=== PATIENT | female | born 1980 | race Two or more races ===

== ENCOUNTER 2024-03-05 08:00 | Inpatient (IN) | payer OTHER ==
[~2024-03-05] VITALS: Ht 66 cm; Wt 59.9 kg
[2024-03-05 09:07] VITALS: BP 119/79
[2024-03-05 09:08] VITALS: BP 132/84
[2024-03-05 09:09] LABS: HEMATOCRIT 33.7 % (36.0-45.00); MEAN CELL VOLUME 87.8 fL (80.00-100.00); MEAN CORPUSCULAR HEMOGLOBIN 28.6 pg (27.00-32.0); MEAN CORPUSCULAR HGB CONC 32.6 g/dl (32.0-36.0); PLATELET COUNT 299 K/uL (150-450); RED BLOOD COUNT 3.84 M/uL (4.00-6.00)
[2024-03-05 09:12] LABS: RED CELL DISTRIBUTION WIDTH 17.2 % (11.5-14.5)
[2024-03-05] MEDS ORDERED: ANIMAL CHEWS1 EACH PO (09:12)
[2024-03-05 09:18] LABS: URINE APPEARANCE Clear; URINE BILIRRUBIN Negative (NEGATIVE); URINE BLOOD Negative; URINE COLOR Yellow; URINE GLUCOSE Negative (NEGATIVE); URINE KETONE Negative (NEGATIVE); URINE LEUKOCYTE Negative; URINE NITRATE Negative; URINE PROTEIN Negative (NEGATIVE); URINE UROBILINOGEN 0.2 E.U./dl
[2024-03-05 09:19] LABS: URINE BACTERIA 6.1 uL (0.0-1933); URINE EPITHELIAL CELLS 2.6 uL (0.0-38.8); URINE RBC 4.5 uL (0.0-20.8)
[2024-03-05 09:29] LABS: INR 1.01; PARTIAL THROMBOPLASTIN TIME 23.4 SECONDS (22.0-34.0)
[2024-03-05 09:50] LABS: URINE WBC 1.4 uL (0.0-23.2)
[2024-03-05 10:34] LABS: ALBUMIN 3.7 gm/dL (3.4-5.0); BILIRUBIN TOTAL 0.42 mg/dL (0.3-1.2); CREATININE SERUM 0.85 mg/dL (0.55-1.02); GLOBULINA 3.9 G/DL (2.4-3.5); POTASSIUM 3.79 mEq/L (3.5-5.1); TOTAL PROTEIN 7.6 gm/dL (6.4-8.2)
[2024-03-09] MEDS ORDERED: CLINDAMYCIN PHOSPHATE 150 MG/ML (900mg) IV SCH (06:00)
[2024-03-09] MEDS ORDERED: POVIDONE-IODINE 118 ML BOTT TOP SCH (12:30)
[2024-03-09] MEDS ORDERED: MORPHINE SULFATE 4 MG/ML VIAL IV ONE ×2 (14:50→15:20)
[2024-03-09] MEDS ORDERED: PROMETHAZINE HCL 25 MG/ML AMPUL IV SCH (16:00)
[2024-03-09] MEDS ORDERED: MEPERIDINE HCL/PF 50 MG/ML VIAL IV SCH (16:00)
[2024-03-09 16:51] VITALS: BP 132/84
[2024-03-09 16:59] LABS: HEMATOCRIT 31.8 % (36.0-45.00); HEMOGLOBIN 10.4 g/dL (12.0-15.00); MEAN CELL VOLUME 87.2 fL (80.00-100.00); MEAN CORPUSCULAR HEMOGLOBIN 28.4 pg (27.00-32.0); MEAN CORPUSCULAR HGB CONC 32.6 g/dl (32.0-36.0); PLATELET COUNT 254 K/uL (150-450); RED BLOOD COUNT 3.64 M/uL (4.00-6.00); RED CELL DISTRIBUTION WIDTH 17.6 % (11.5-14.5)
[2024-03-10] VITALS: BP 122/70
[2024-03-10] MEDS ORDERED: IBUprofen 800 MG TABLET PO SCH (02:00)
[2024-03-10] MEDS ORDERED: SIMETHICONE 125 MG CAPSULE PO SCH (05:00)
[2024-03-10] MEDS ORDERED: GABAPENTIN 300 MG CAPSULE PO SCH (05:00)
[2024-03-10] MEDS ORDERED: POLYETHYLENE GLYCOL 3350 17 GM BLIST.PACK PO SCH (09:00)
[2024-03-10 09:55] VITALS: BP 116/72
[2024-03-10] MEDS ORDERED: KETOROLAC TROMETHAMINE 60 MG VIAL IM STA (10:53)
[2024-03-10 16:11] VITALS: BP 112/76
[2024-03-10 20:55] VITALS: BP 102/65
[2024-03-11 01:08] VITALS: BP 90/55
[2024-03-11] MEDS ORDERED: IBUPROFEN800 MG PO (07:00)
[2024-03-11] MEDS ORDERED: POLY119PG PO (07:00)
[2024-03-11] MEDS ORDERED: GABAPENTIN300 MG PO (07:00)
[2024-03-11] MEDS ORDERED: SIMETHICONE125 M1 PO (07:01)
[2024-03-11 08:51] VITALS: BP 103/71
== END 2024-03-11 12:34 | disposition home or self-care (01) | DRG 743 ==
LOC: O/R 03-09 05:36 → SURG 03-09 08:00 → OB/GYN 03-09 15:01
PROVIDERS: ADMIT Obstetrics & Gynecology; ATTEND Obstetrics & Gynecology
PROC: 0UT70ZZ Resection of Bilateral Fallopian Tubes, Open Approach (ICD-10-PCS; 2024-03-09)
PROC: 0UT90ZZ Resection of Uterus, Open Approach (ICD-10-PCS; principal; 2024-03-09 12:00)
DX: D25.0 Submucous leiomyoma of uterus (principal); N80.03 Adenomyosis of the uterus; N72 Inflammatory disease of cervix uteri; Z20.822 Contact with and (suspected) exposure to COVID-19; R10.2 Pelvic and perineal pain